=== PATIENT | female | born 2000 ===

== ENCOUNTER 2019-02-28 16:16 | Emergency (ER) | payer SELFPAY ==
[2019-02-28 16:32] VITALS: BP 120/79
--- NOTE | 2019-02-28 17:11 | UC ---
Complaint Female HPI - HPI Summary HPI Summary: 18-year-old female presents with complaints of one week history of lower back pain, chills, nausea, and urinary frequency. Patient states that she is concerned that she may have a kidney infection. She also reports having 2 episodes of self diagnosed heatstroke within the past 2 months that she think may be contributing to her symptoms including an episode that occurred while traveling in [place]. Last menstrual period was one week ago. Reports normal flow and duration. Denies fever, abdominal pain, vomiting, diarrhea, dysuria, urgency, or vaginal discharge. - History Of Current Complaint Chief Complaint: UCBackPain Stated Complaint: ABDOMINAL PAIN Time Seen by Provider: 02/28/19 16:39 Hx Obtained From: Patient Hx Last Menstrual Period: 02/22/19 Pain Intensity: 2 - Allergies/Home Medications Allergies/Adverse Reactions: Allergies Allergy/AdvReac Type Severity Reaction Status Date / Time No Known Allergies Allergy Verified 02/28/19 16:32 Home Medications: Home Medications Ibuprofen TAB* [Advil TAB*] 400 mg PO Q6HR 02/28/19 [History Confirmed 02/28/19] lamoTRIgine TAB(*) [Lamictal TAB(*)] 25 mg PO DAILY 02/28/19 [History Confirmed 02/28/19] risperiDONE [Risperidone] 0.5 mg PO DAILY 02/28/19 [History Confirmed 02/28/19] PMH/Surg Hx/FS Hx/Imm Hx Psychological History: Depression - Family History Known Family History: Positive: Non-Contributory - Social History Occupation: Student Lives: With Family Alcohol Use: None Substance Use Type: None Smoking Status (MU): Never Smoked Tobacco Review of Systems All Other Systems Reviewed And Are Negative: Yes Constitutional: Positive: Chills. Negative: Fever Respiratory: Positive: Negative Cardiovascular: Positive: Negative Gastrointestinal: Positive: Nausea. Negative: Abdominal Pain, Vomiting, Diarrhea Genitourinary: Positive: Frequency. Negative: Dysuria, Hematuria, Urgency, Vaginal/Penile Burning, Vaginal/Penile Itching, Vaginal/Penile Discharge, Abnormal Bleeding Musculoskeletal: Positive: Negative Neurological: Positive: Negative Is Patient Immunocompromised?: No Physical Exam - Summary Physical Exam Summary: GENERAL APPEARANCE: Well developed, well nourished, alert and cooperative, and appears to be in no acute distress. EYES: Conjunctiva clear. No drainage. EARS: External auditory canals and tympanic membranes clear, hearing grossly intact. NOSE: No nasal discharge. THROAT: Pharynx normal No tonsilar inflammation, swelling, exudate, or lesions. Uvula midline. NECK: Neck supple, non-tender without lymphadenopathy. CARDIAC: Normal S1 and S2. No S3, S4 or murmurs. Rhythm is regular. There is no peripheral edema, cyanosis or pallor. Extremities are warm and well perfused. Capillary refill is less than 2 seconds. Peripheral pulses intact. LUNGS: Clear to auscultation without rales, rhonchi, wheezing or diminished breath sounds. ABDOMEN: Positive bowel sounds. Soft, nondistended, nontender. No guarding or rebound. No masses or hepatosplenomegally. No CVA tenderness. MUSKULOSKELETAL: ROM intact to all extremities. No joint erythema or tenderness. Normal muscular development. Normal gait. SKIN: Skin normal color, texture and turgor with no lesions or eruptions. Triage Information Reviewed: Yes Vital Signs: Initial Vital Signs Temp 99.4 F 02/28/19 16:24 Pulse 97 02/28/19 16:24 Resp 16 02/28/19 16:24 BP 120/79 02/28/19 16:24 Pulse Ox 99 02/28/19 16:24 Vital Signs Reviewed: Yes Complaint Female Dx - Course Course Of Treatment: 18-year-old female presents with complaints of one week history of lower back pain, chills, nausea, and urinary frequency. Patient states that she is concerned that she may have a kidney infection. She also reports having 2 episodes of self diagnosed heatstroke within the past 2 months that she think may be contributing to her symptoms including an episode that occurred while traveling in [place]. Last menstrual period was one week ago. Reports normal flow and duration. Denies fever, abdominal pain, vomiting, diarrhea, dysuria, urgency, or vaginal discharge. Afebrile. Vital signs stable. The patient's exam was overall unremarkable. [id number] urinalysis showed 2+ leukocyte esterase, 2+ blood, and positive nitrites. Urine was negative. Urine culture is pending. Reviewed findings with patient. We discussed that based on the urine test and her symptoms she likely has a urinary tract infection which could include the possibility of an early kidney infection. I feel that her current symptoms are likely unrelated to the episodes that she had in the previous 2 months. I will start her on ciprofloxacin 500 mg twice a day 5 days pending the culture results. She is to follow-up with her primary care provider in 3 days if her symptoms are not improving. Anticipatory guidance and warning symptoms were reviewed with the patient. Verbalizes understanding and agrees with plan of care. - Differential Dx/Diagnosis Differential Diagnosis/HQI/PQRI: , Renal Colic, Ureteral Stone, Urinary Tract Infection Provider Diagnosis: UTI (urinary tract infection) Discharge - Sign-Out/Discharge Documenting (check all that apply): Patient Departure All imaging exams completed and their final reports reviewed: No Studies - Discharge Plan Condition: Stable Disposition: HOME Prescriptions: Ciprofloxacin HCl 500 mg PO BID #10 tablet Patient Education Materials: Urinary Tract Infection in Women (ED) Referrals: Red Bautista MD [Primary Care Provider] - 3 Days Additional Instructions: Your urine test in the clinic today is suggestive of a urinary tract infection. We will start you on an antibiotic to treat for the infection. We will also send a urine culture today to see what bacteria grow out and make sure the antibiotic you were prescribed is appropriate to treat the infection. It will take 48-72 hours to get these results. We will contact you if there is any change in your treatment plan. Start ciprofloxacin 500 mg twice a day for 5 days. Drink plenty of fluids. To help prevent urinary tract infections: 1) Be sure to wipe from front to back. 2) Urinate immediately after any sexual intercourse. 3) Avoid taking bubble baths. Follow up with your primary care provider in 3 days if symptoms do not improve. Seek immediate medical attention in the emergency room if you develop fever greater than 100.5 F, have severe abdominal pain, persistent vomiting, or any worsening of symptoms. - Billing Disposition and Condition Condition: STABLE Disposition: Home - Attestation Statements Provider Attestation: Per institutional requirements, I have reviewed the chart, however, I was not consulted specifically or made aware of this patient by the midlevel provider. I did not personally evaluate, interact with , or disposition this patient.
== END 2019-02-28 17:27 | disposition home or self-care (01) ==
LOC: UCEAST 16:16
DX: N39.0 Urinary tract infection, site not specified (principal); F32.9 Major depressive disorder, single episode, unspecified
CPT/HCPCS: 81002; 81025; 87077; 87086; 87186; 99212; G0463